=== PATIENT | female | born 1950 | race Caucasian/White ===

== ENCOUNTER 2016-12-27 09:51 | Observation (INO) | payer BC ==
[2016-12-27] MEDS ORDERED: HOME MEDICATION LIST NEEDED 1 EA EACH MC ONE (15:05)
[2016-12-27] MEDS ORDERED: SODIUM CHLORIDE PO ONE (15:18)
[2016-12-27] MEDS ORDERED: POTASSIUM CHLORIDE PO ONE (15:18)
[2016-12-27] MEDS ORDERED: SODIUM SULFATE PO ONE (15:18)
[2016-12-27] MEDS ORDERED: [UNRECOGNIZED DRUG - OTHER] PO ONE (15:18)
[2016-12-27] MEDS ORDERED: SODIUM BICARBONATE PO ONE (15:18)
[2016-12-27] MEDS ORDERED: CYCLOBENZAPRINE HCL 10 MG TABLET PO PRN (15:22)
[2016-12-27] MEDS ORDERED: ONDANSETRON ODT 4 MG TAB.RAPDIS PO PRN (15:23)
[2016-12-27 16:00] LABS: BASOPHILS 0.2 % (0.0-2.0); EOSINOPHILS 0.4 % (0.0-6.0); HEMATOCRIT 37.3 % (36.0-48.0); HEMOGLOBIN 12.6 g/dL (12.0-16.0); LYMPHOCYTES 11.2 % (20.0-40.0); MEAN CELL VOLUME 90.3 fL (80.0-100.0); MEAN CORPUS. HGB CONCENTRATION 33.7 g/dL (32.0-36.0); MEAN CORPUSCULAR HEMOGLOBIN 30.4 pg (29.0-35.0); MEAN PLATELET VOLUME 7.7 fL (7.4-10.4); MONOCYTES 6.7 % (2.0-10.0); MONOCYTES# 0.6 X 10^3uL (0.2-1.0); NEUTROPHILS 81.5 % (54.0-75.0); NEUTROPHILS# 7.2 X 10^3uL (2.6-6.7); PLATELET COUNT 262 X 10^3uL (130-440); RED BLOOD COUNT 4.14 X 10^6uL (4.20-6.10); RED CELL DISTRIBUTION WIDTH 12.1 % (11.5-14.5); WHITE BLOOD COUNT 8.8 X 10^3uL (3.9-10.7)
[2016-12-27] MEDS ORDERED: POTASSIUM CHLORIDE/NS 1,000 ML IV SCH (16:00)
[2016-12-27 16:02] LABS: BLOOD UREA NITROGEN 11 mg/dL (7-17); CHLORIDE 100 mmol/L (98-107); CREATININE 0.6 mg/dL (0.5-1.0); EST GLOMERULAR FILTRATION RATE > 60 mL/min; GLUCOSE 143 mg/dL (70-100); SODIUM 132 mmol/L (137-145)
--- NOTE | 2016-12-27 17:59 | ER NURSING DOCUMENTATION ---
Nurse's Notes [facility] Name:Lucrecia Carpenter Age:66 yrs Sex:Female :1950 Arrival Date:12/27/2016 Time:09:51 Bed1 Private MD:Cris Taylor Diagnosis:Constipation Presentation: 12/27 09:53 Acuity: ABI 3 tg 10:06 Presenting complaint: Patient states: Spinal fusion surgery Thursday, no BM since then. tg ABD pain, feels constipated, concerned that she is retaining urine now. Transition of care: patient was not received from another setting of care. 10:06 Method Of Arrival: Private Vehicle tg Triage Assessment: 10:21 General: Appears uncomfortable, Behavior is cooperative. Pain: Complains of pain in tg abdomen. Neuro: Level of Consciousness is awake, alert. Respiratory: Respiratory effort is even, unlabored. GI: Abdomen is distended, Abd is soft Abdomen is tender to palpation. Derm: Skin is pink, warm & dry. Historical: - Allergies: No known drug Allergies; - Home Meds: 1. Valtrex Oral 2. Climara transdermal 3. fluticasone nasl 4. Hydrocodone-Acetaminophen 5-325 mg Oral - PMHx: Dehydration (May 26, 2015); Gastroenteritis (May 26, 2015); chronic back pain; sciatica; GERD; - PSHx: APPENDECTOMY; HYSTERECTOMY; Appendectomy; - Tetanus: < 10 years. - Ebola Screening: : Patient negative for fever greater than or equal to 101.5 degrees Fahrenheit, and additional compatible Ebola Virus Disease symptoms. Patient denies exposure to infectious person. Patient denies travel to an Ebola-affected area in the 21 days before illness onset. No symptoms or risks identified at this time. . - Immunization history: Flu Vaccine < 1 year. - Social history: Smoking status: Patient states was never smoker of tobacco. Screenin:26 Infectious Disease Risk Unable to Obtain. Abuse screen: Denies threats or abuse. Denies tg injuries from another. Nutritional screening: No deficits noted. Assessment: 10:26 See Triage Assessment done by same RN. tg 10:27 Reassessment: Bladder scanner shows >999ml of urine, Dr. Johnson notified. . tg Vital Signs: 10:20 BP 121 / 68; Pulse 79; Resp 16; Temp 98.2; Pulse Ox 95% on R/A; Weight 45.36 kg (R); tg Height 5 ft. 2 in. (157.48 cm) (R); Pain 3/10; 10:20 Body Mass Index 18.29 (45.36 kg, 157.48 cm) tg ED Course: 09:53 Patient arrived in ED. ama 09:53 Cris Taylor MD is Private Physician. ama 09:54 Triage completed. tg 10:04 Larry Thomas RN is Primary Nurse. tg 10:22 Williams Johnson MD is Attending Physician. jm 10:26 Valuables Remains with patient. tg 10:30 Arm band placed on Bed in low position Call Light in Reach Gowned Side rails up x1. rs Family accompanied patient. 10:30 Door closed. Noise minimized. Lights dimmed. Verbal reassurance given. Warm blanket rs given. 11:15 Difficulty holding enema. Done slowly for 750 ml. Up to bedside commode now. rs 11:55 Shay cath inserted 16 Fr. Balloon inflated. To gravity drainage. Urine specimen rs collected. returned clear yellow urine. Patient tolerated well. 11:56 Log rolls for any movement. Good technique. Spouse is very attentive and assists her. rs 12:00 Dis-impacted of approx 90 cc hard light brown stool. rs 12:28 Up to bedside commode. rs 13:16 Soap suds enema given. rs 13:17 No apparent distress. Resting quietly. rs 13:45 Up to bedside commode. rs 14:35 Up walking around ER, using walker, spouse walking with her. Admission. rs 15:06 Cris Taylor MD is Admitting Physician. jm 15:07 Barrie Santa MD is Admitting Physician. jm 15:50 Inserted saline lock: 20 gauge in left forearm and blood collected. rs 16:11 Admission. rs Administered Medications: No medications were administered Point of Care Testing: Urine Dip: 10:52 pH: 7.0; ; Specific [place]: 1.015; Ketones: Negative; Glucose: Negative; Protein: rs Negative; Leukocytes: Positive; Nitrite: Negative ; Blood: Hemolyzed Trace; Bilirubin: Negative ; Urobilinogen: NormalOther: clear yellow. cath specimen. Output: 11:08 Urine: 800ml (Shay); Total: 800ml. rs Outcome: 15:07 Decision to Admit by Provider. rachel 17:20 Admitted to Med/surg accompanied by nurse, via stretcher. abigail 17:20 Condition: improved 17:20 Report given to Ihsan VILLA 17:20 Instructed on need to admit 17:58 Patient left the ED. rs Signatures: Larry Thomas RN RN tg Stalker, Rachael, RN RN Williams Ding MD MD jm Averdick, Andrew, Reg Reg ama
--- NOTE | 2016-12-27 17:59 | ER PHYSICIAN DOCUMENTATION ---
Physician Documentation [facility] Name:Lucrecia Carpenter Age:66 yrs Sex:Female :1950 Arrival Date:12/27/2016 Time:09:51 Bed1 Private MD:Cris Taylor ED, John Disposition: 12/27/16 15:07 Admit ordered for Barrie Santa. Preliminary diagnosis is Constipation. - Bed requested for Medical/Surgical. - Condition is Fair. - Problem is new. - Symptoms are unchanged. 23 HR OBS Yes HPI: 12/27 14:10 This 66 yrs old Female presents to ER via Private Vehicle with complaints of jm Abdominal Pain. 14:10 The patient presents with constipation. Onset: The symptoms/episode began/occurred 2 jm day(s) ago. The symptoms do not radiate. Associated signs and symptoms: Pertinent positives: urinary retention . The symptoms are described as crampy, dull. Severity of pain: in the emergency department the pain is unchanged. 14:28 Modifying factors: the symptoms are aggravated by nothing. The patient has not jm experienced similar symptoms in the past. The patient has not recently seen a physician. 66 yo F s/p L4/5 fusion 5 days ago presenting w urinary retention (1 day) and constipation (5 days). Pt is very uncomfortable and needed to be seen. Historical: - Allergies: No known drug Allergies; - Home Meds: 1. Valtrex Oral 2. Climara transdermal 3. fluticasone nasl 4. Hydrocodone-Acetaminophen 5-325 mg Oral - PMHx: Dehydration (May 26, 2015); Gastroenteritis (May 26, 2015); chronic back pain; sciatica; GERD; - PSHx: APPENDECTOMY; HYSTERECTOMY; Appendectomy; - Tetanus: < 10 years. - Ebola Screening: : Patient negative for fever greater than or equal to 101.5 degrees Fahrenheit, and additional compatible Ebola Virus Disease symptoms. Patient denies exposure to infectious person. Patient denies travel to an Ebola-affected area in the 21 days before illness onset. No symptoms or risks identified at this time. . - Immunization history: Flu Vaccine < 1 year. - Social history: Smoking status: Patient states was never smoker of tobacco. ROS: 14:29 Constitutional: Negative for fever. jm 14:29 ENT: Negative for sinus congestion, sinus pain, sore throat. 14:29 Respiratory: Negative for cough, shortness of breath. 14:29 Abdomen/GI: Positive for abdominal pain, constipation, abdominal cramps. 14:29 Back: Positive for pain at rest, pain with movement. 14:29 : Positive for difficulty urinating. 14:29 MS/extremity: Negative for paresthesias, tenderness. 14:29 Neuro: Negative for numbness, tingling, weakness. 14:29 All other systems are negative. Exam: 14:30 Constitutional: The patient appears alert, awake, comfortable. 14:30 Eyes: Periorbital structures: appear normal, Extraocular movements: intact throughout. 14:30 ENT: Mouth: is normal, Posterior pharynx: is normal. 14:30 Cardiovascular: Rate: normal, Rhythm: regular. 14:30 Respiratory: Respirations: normal, Breath sounds: are normal. 14:30 Abdomen/GI: Inspection: distension, that is moderate, Bowel sounds: active, Palpation: moderate abdominal tenderness, in the suprapubic area, Rectal exam: fecal impaction, that is moderate, done by Radha VILLA. - She noted normal sensation and impaction. . 14:30 : CVA tenderness, is absent, Bladder: distension, that is moderate, tenderness, that is mild. 14:30 Skin: Appearance: Color: pink, no rash present. 14:30 Neuro: Mentation: is normal, Memory: is normal, Sensation: is normal, Gait: is steady, needs walker per usual. . 14:30 Psych: Behavior/mood is pleasant, cooperative, Affect is calm. Vital Signs: 10:20 BP 121 / 68; Pulse 79; Resp 16; Temp 98.2; Pulse Ox 95% on R/A; Weight 45.36 kg (R); tg Height 5 ft. 2 in. (157.48 cm) (R); Pain 3/10; 10:20 Body Mass Index 18.29 (45.36 kg, 157.48 cm) tg MDM: 10:23 Patient medically screened. 14:32 Differential diagnosis: bowel obstruction, non-specific abd pain, urinary tract jm infection, severe constipation. Data reviewed: vital signs, nurses notes, and as a result, I will admit patient. Counseling: I had a detailed discussion with the patient and/or guardian regarding: the historical points, exam findings, and any diagnostic results supporting the discharge/admit diagnosis, the need for further work-up and treatment in the hospital, for GI prep. . Physician consultation: Barrie Santa MD regarding admission, and will see patient immediately. 15:04 ED course: No luck after disimpaction by DAISY Garcia and 2 enemas. Pt has been here for jm 5 hours w/o BM. Will admit to Dr. Santa for GI prep. Dr. Cast who is concession manager for Dr. Currie, her surgeon states he is ok w this and highly doubts this is due to any any neurologic issue from the surgery. . 12/27 16:07 Order name: CBC AUTO DIF, MDIF/RMOR IF IND; Complete Time: 20:38 EDTN 12/27 16:07 Order name: BASIC METABOLIC PANEL; Complete Time: 20:38 EDMS 12/27 10:34 Order name: Straight Cath; Complete Time: 10:46 12/27 10:46 Order name: Urine Dip; Complete Time: 11:51 jm 12/27 11:05 Order name: Enema: Soap Suds; Complete Time: 11:55 12/27 13:15 Order name: Enema: Soap Suds; Complete Time: 13:16 rs 12/27 16:04 Order name: Iv Saline Lock; Complete Time: 16:07 rs Dispensed Medications: No medications were administered Point of Care Testing: Urine Dip: 10:52 pH: 7.0; ; Specific [place]: 1.015; Ketones: Negative; Glucose: Negative; Protein: rs Negative; Leukocytes: Positive; Nitrite: Negative ; Blood: Hemolyzed Trace; Bilirubin: Negative ; Urobilinogen: NormalOther: clear yellow. cath specimen. Signatures: Larry Thomas RN RN tg Stalker, Rachael, RN RN rs Meyer, John, MD MD jm
[2016-12-27] MEDS: BISACODYL 5 MG TABLET PO SCH (18:35)
[2016-12-27] MEDS: HYDROcodone/APAP 5/325 MG 1 TAB TABLET PO PRN (23:45)
[2016-12-28 06:19] VITALS: BP 98/67; PULSE 84; TEMP 98.4; O2SAT 95
--- NOTE | 2016-12-28 07:22 | HISTORY & PHYSICAL ---
DATE OF ADMISSION: 12/27/16 ATTENDING PHYSICIAN: Barrie Santa MD PRIMARY CARE PHYSICIAN: Cris Taylor MD HISTORY OF PRESENT ILLNESS: This 66-year-old woman underwent an L4-L5 fusion by Dr. Clarence Currie 5 days ago. Her postoperative course has been uncomplicated except for persistent constipation and some new urinary retention. She has not had a bowel movement since surgery, despite taking Senna with Docusate sodium twice daily since surgery and taking 1 dose daily of MiraLax the last 2 days. Over the last 12 hours, she noticed a decrease in urinary output and increased pelvic and abdominal discomfort. In the Emergency Department she was found to have 1400 mL of urinary retention which was relieved with a Shay catheter. Multiple attempts at dealing with her constipation in the Emergency Department were minimally successful including 2 enemas and some digital disimpaction. Her abdominal pain did resolve after the urinary drainage, however, it was felt to be prudent to admit her further disimpaction given her difficulties with mobility related to the recent surgery. PAST MEDICAL HISTORY 1. Lumbar radiculopathy. 2. Postmenopausal symptoms. 3. Osteopenia. 4. Vitamin D deficiency. 5. Dry eye syndrome. MEDICATIONS ON ADMISSION Climara 0.0375 mcg per 24 hours 1 patch weekly. Hydrocodone with acetaminophen 5/325 mg 2 tabs q.6 hours regularly since surgery. Methocarbamol 750 mg q.h.s. since surgery. Senna with docusate sodium 1 tab b.i.d. ALLERGIES: No known drug allergies. SURGICAL HISTORY 1. Patient underwent an L4-L5 fusion at [facility] on 12/22/[address] Clarence Currie. 2. Previous hysterectomy. FAMILY HISTORY: Her sister had diabetes and has . Her father of smoking related issues. Her mother in her 90s. No family history of hypercoagulability. SOCIAL HISTORY: Patient lives here in [place] with her . She has never smoked and drinks occasionally. REVIEW OF SYSTEMS GENERAL: No fever, chills or malaise. RESPIRATORY: No cough or shortness of breath. CARDIOVASCULAR: No chest pain or palpitations. ABDOMEN/GI: Had some bloating, constipation and pelvic discomfort (relieved with a Shay catheter). : Had urinary retention the last 12 hours. No dysuria prior. MUSCULOSKELETAL: She had some moderate postsurgical low back pain which is gradually improving. No pedal edema. PHYSICAL EXAMINATION VITAL SIGNS: Blood pressure 121/68, pulse 79, respiratory rate 16, temperature 98.2. O2 saturation 95% on room and weight is 45.4 kilos with height of 5 feet, 2 inches. GENERAL: She was in moderate distress initially but in no acute distress when I evaluated her later in the Emergency Department after the Shay catheter. She was very careful about keeping her back straight. HEENT: Oral mucosa is mildly dry. LUNGS: Clear with good air movement. HEART: Regular rate and rhythm with no murmur. ABDOMEN: Soft, slightly distended and nontender with masses or hepatosplenomegaly. EXTREMITIES: Without edema. SKIN: The incision on the lumbar area is healing well. Steri-Strips are in place and there is no surrounding erythema or drainage. LABORATORY DATA: CBC and CMP are pending. IMPRESSION 1. Obstipation related to recent spinal surgery. 2. Five days status post lumbar fusion at L4-L5. 3. Urinary retention probably related to the obstipation. Doubt a Cauda Equina syndrome. No saddle anesthesia. 4. History of postmenopausal symptoms being treated with Estrogen. PLAN: Patient has been admitted for further treatment of her obstipation. Dr. Johnson spoke with the neurosurgeon antichecking iron worker, who agreed. Will try GoLYTELY prep gradually over the next 12-18 hours, supplemented with Dulcolax suppositories. Will help maintain hydration with IV with normal saline with 20 of potassium per liter. She will remain under spinal fusion precautions throughout her stay. When she is ambulating, she should have her brace on. When in bed, she needs to log roll and not flex her low back. DERRICK
[2016-12-28] MEDS: BISACODYL 5 MG TABLET PO SCH (08:33)
[2016-12-28] MEDS: HYDROcodone/APAP 5/325 MG 1 TAB TABLET PO PRN (09:40)
--- NOTE | 2016-12-28 10:33 | DC SUMMARY: IM Note ---
Discharge Summary: IM/Peds Provider: Date of Admission: 12/27/16 Admitting Provider: MAURI COOMBS MD Attending Provider: VALENCIA HUYNH MD Discharging Provider: MAURI COOMBS MD Primary Care Provider: Discharge Date: 12/28/16 - Diagnosis (1) Obstipation Status: Acute (2) S/P spinal fusion Status: Acute (3) Acute urinary retention Status: Acute Hospital Course: This 66-year-old patient of Dr. Huynh's was admitted to [facility] overnight for obstipation and acute urinary retention 5 days after having a L4-[address] Currie in [place].she had been using hydrocodone 10 mg tablets 2 every 6 hours around the clock since surgery. Following surgery she did not have any bowel movements, and 12 hours prior to her arrival to the ED she started having decreased urinary output. She was found to have 1400 mL of retained urine, which was relieved with a Shay catheter. This was removed in the garage attendant on 12/28/16 and 4 hours later she hadn't a postvoid residual urine volume of 85 ml. She felt that she was urinating normally. In the ED she underwent to enemas and some digital disimpaction. This had minimal results, so she was admitted for a GoLYTELY prep overnight. She only required about 200 mL ulcer of the GoLYTELY, and had 7-9 bowel movements after that. At discharge she was feeling fine and denied any abdominal discomfort. Her back pain was well-controlled on hydrocodone/acetaminophen 5/325 mg every 4- 6 hours when necessary through the night. I discharged her on the morning the with instructions to dramatically decrease her opioid use and to substitute some long-acting Tylenol instead. Refer to the medication list for home. She will continue her senna producttwice a day, and supplement that with MiraLAX if she does not have a bowel movement within 36 hours. She should drink ample fluids. She will follow up with Dr. Currie as previously directed, or see Dr. Huynh sooner if having continued problems. - Time Spent with Patient Total time spent providing and/or coordinating discharge services: Discharge - Patient/Caregiver Discharge Instructions Activity Level: Keep spine straight at all times. Diet: regular Follow up: DOMINIQUE CURRIE [] - Next Appointment (as directed) Home Medications: Acetaminophen [Arthritis Pain Reliever] 650 mg PO TID #90 tablet.er Polyethylene Glycol 3350 [Miralax*] 1 packet PO DAILY PRN 10 Days PRN Reason: Constipation Hydrocodone/Acetaminophen [Equinunk 10-325 Tablet] 0.5 tab PO Q4H PRN 10 Days PRN Reason: Pain, Back Disposition: HOME, SELF-CARE Discharge Summary Data - Medication History Medication History: Home Medications Estradiol/Levonorgestrel [Climara Pro Patch] 1 each TD WEEKLY 12/27/16 Methocarbamol 750 mg PO HS 12/27/16 Sennosides [Sennagen*] 17.2 mg PO BID 12/27/16 Acetaminophen [Arthritis Pain Reliever] 650 mg PO TID #90 tablet.er 12/28/16 Hydrocodone/Acetaminophen [Equinunk 10-325 Tablet] 0.5 tab PO Q4H PRN 10 Days 12/28 Polyethylene Glycol 3350 [Miralax*] 1 packet PO DAILY PRN 10 Days 12/28/16 Inpatient Medications 12/28/16 11:00 Acetaminophen ER [Tylenol ER] 650 mg PO TID Procedures and tests throughout hospitalization: Pending Orders 12/28/16 09:34 Bladder Scan/ PVR . 12/28/16 10:19 Discharge ONCE 12/28/16 10:20 Remove Peripheral IV ONCE 12/28/16 11:00 Acetaminophen ER [Tylenol ER] 650 mg PO TID IM: Discharge Physical Exam - I&O/Vital Signs I&O: Intake & Output 12/27/16 12/28/16 12/28/16 20:59 05:59 13:59 Intake Total 1515 Output Total 800 Balance 715 Weight Intake: IV 665 Left Forearm 665 Oral 850 Output: Urine 800 Other: Urine Appearance Clear Urine Color Yellow Stool Size Small Stool Characteristics Soft Liquid Voiding Method Indwelling Catheter # Bowel Movements 2 Vital Signs: Last Vital Signs Temp 36.9 C 12/28/16 06:17 Pulse 84 12/28/16 06:17 Resp 21 12/28/16 06:17 BP 98/67 12/28/16 06:17 Pulse Ox 95 12/28/16 06:17 Oxygen Flow Rate 2 Oxygen Delivery Method Room Air - Constitutional General appearance: Present: average body habitus - ENT ENT exam: Present: mucous membranes moist - Respiratory Respiratory exam: Present: clear - Cardiovascular Cardiovascular exam: Present: RRR. Absent: systolic murmur - GI/Abdominal GI/Abdominal exam: Present: normal bowel sounds, soft. Absent: distended, tenderness - Extremities Exam Extremities exam: Absent: calf tenderness, edema - Back Exam Back exam: Present: vertebral tenderness (very mild at the surgery site.). Absent: rash noted - Neurological Exam Neurological exam: Present: oriented X3 - Psychiatric Psychiatric exam: Present: normal mood - Allied Health Notes Allied health notes reviewed: nursing
[2016-12-28 10:54] VITALS: RESP 18
[2016-12-28] MEDS ORDERED: ACETAMINOPHEN ER 650 MG TAB.SR.8HR PO SCH (11:00)
[2017-01-03] MEDS ORDERED: ESTRADIOL TD SCH ×2 (09:00)
[2017-01-03] MEDS ORDERED: LEVONORGESTREL TD SCH ×2 (09:00)
== END 2016-12-28 10:19 | disposition home or self-care (01) ==
LOC: ER 09:51 → IN 17:10
PROVIDERS: ADMIT Family Medicine; ATTEND Family Medicine
DX: K58.1 Irritable bowel syndrome with constipation (principal); R33.0 Drug induced retention of urine; T40.2X5A Adverse effect of other opioids, initial encounter; Z98.890 Other specified postprocedural states; M85.89 Other specified disorders of bone density and structure, multiple sites; E54 Ascorbic acid deficiency; Z79.899 Other long term (current) drug therapy
CPT/HCPCS: 51702; 80048; 85025; 96361; 96366; 99285; G0378; J3480